=== PATIENT | male | born 1995 | race Caucasian/White ===

== ENCOUNTER 2017-12-31 16:27 | Emergency (ER) | payer OTHER ==
[~2017-12-31] VITALS: Ht 182.9 cm; Wt 79.4 kg
[2017-12-31 16:31] VITALS: Ht 182.9 cm; Wt 79.4 kg
[2017-12-31 17:15] VITALS: BP 126/89
== END 2017-12-31 17:15 | disposition home or self-care (01) ==
LOC: ED 16:27
DX: S90.32XA Contusion of left foot, initial encounter (principal); V03.90XA Pedestrian on foot injured in collision with car, pick-up truck or van, unspecified whether traffic or nontraffic accident, initial encounter; Y93.89 Activity, other specified; Y92.488 Other paved roadways as the place of occurrence of the external cause; Y99.8 Other external cause status